=== PATIENT | male | born 1985 | race Caucasian/White ===

== ENCOUNTER → 2021-03-21 | Outpatient (CLI) | payer OTHER ==
--- NOTE | 2021-03-27 08:18 | PF ---
[place] [address] PULMONARY FUNCTION REPORT Name: IRENA DAVISON Room: [facility]#: [id number] Admission: 03/21/21 Attend Phys: Nicola Gregory MD Discharge: Date of : 85 Report #: [id number] THIS REPORT FOR: cc: FAM - No family physician/PCP FAM - No family physician/PCP Azael Thapa MD ~ DOC #: [id number] Azael Thapa MD DATE OF VISIT: 03/21/2021 Only a spirometry was performed. The FEV1/FVC ratio is decreased to 67% with an FVC close to the upper limit of normal range at 117%. The FEV1 is also normal at 98%. The FEF 25-75 is at the lower limit of normal range at 65%. After the administration of a bronchodilator, there is no significant increase in any of these values. The patient's post-bronchodilator FEV1 is 4.59 liters. IMPRESSION: Only a spirometry was performed and indicates mild obstruction without evidence of reversibility. MD BRE Verma/SAMARIA <ELECTRONICALLY SIGNED> By: Azael Thapa MD 03/27/21 [id number] davion Elias
== END ==
LOC: M.PUL 02-14 10:00
PROVIDERS: ATTEND Orthopaedic Surgery
DX: J98.4 Other disorders of lung (principal); J45.998 Other asthma; M13.80 Other specified arthritis, unspecified site